=== PATIENT | male | born 1965 | race Caucasian/White ===

== ENCOUNTER → 2019-06-13 | Outpatient (CLI) | payer OTHER ==
--- NOTE | 2019-06-13 17:20 | PCVCIMAG ---
APPROVED REPORT Study performed: 06/13/2019 16:13:08 Exam: Stress Echocardiogram Indication: CAD s/p CABG, chest pressure, htn, hlp Patient Location: Echo lab Stress Nurse: Jayashree Obregon RN Status: routine Ht: 6 ft 0 in HR: 82 bpm BP: 140/90 mmHg Rhythm: NSR Procedure The patient underwent an Exercise Stress Test using the Mason Protocol. Blood pressure, heart rate, and EKG were monitored. An Echocardiogram was performed by food equipment service technician in four stages in quad fashion. At peak stress, four selected images were obtained and placed side by side with resting images for comparison. Stress Test Details Stress Test: Exercise stress testing was performed using a Mason protocol. HR Resting HR: 82 bpmMax Heart Rate (APMHR): 168 bpm Max HR Achieved: 179 bpmTarget HR (85% APMHR): 142 bpm % of APMHR: 106 Recovery HR: 102 bpm HR response to stress: Normal HR response to stress BP Resting BP: 140/90 mmHg Max BP: 180/88 mmHg Recovery BP: 138/84 mmHg BP response to stress: Normal blood pressure response to stress. ECG Resting ECG: Sinus Rhythm Stress ECG: Sinus Rhythm ST Change: Normal Arrhythmia: occasional PVCs Recovery ECG: Sinus Rhythm Recovery ST Change: Normal Recovery Arrhythmia: None Clinical Reason for Termination: Maximal effort Stress Symptoms: Dyspnea, hip pain Exercise duration: 10 min 7 sec Highest Stage Achieved: Stage 4: 4.2 mph at 16% grade. Exercise capacity: 13.4 METs Overall Exercise Capacity for Age: Normal Scale: Active Angina Score: None Pre-Stress Echo The resting Echocardiogram showed normal left ventricular contractility with an estimated Ejection Fraction of about >55%. Normal wall motion in all segments on baseline images. Post-Stress Echo The stress Echocardiogram showed normal left ventricular contractility with an estimated Ejection Fraction of about 65%. Normal augmentation of wall motion in all segments on post stress images. Clinical No clinical or ECG evidence for ischemia. Conclusion Clinical Response: Non-ischemic Exercise Capacity: Average Stress ECG Response: Non-ischemic Stress Echo Images: Non-ischemic The left ventricle is normal in size and wall thickness in both the rest and stress images. Normal color doppler. No regurgitation or stenosis present on pulmonic, mitral, tricuspid or aortic valves. Other Information Study Quality: Adequate <Conclusion> The left ventricle is normal in size and wall thickness in both the rest and stress images. Normal color doppler. No regurgitation or stenosis present on pulmonic, mitral, tricuspid or aortic valves.
== END ==
LOC: PCVCIMAG 16:25
PROVIDERS: ATTEND Internal Medicine Cardiovascular Disease
DX: I25.10 Atherosclerotic heart disease of native coronary artery without angina pectoris (principal); R07.9 Chest pain, unspecified; I10 Essential (primary) hypertension
CPT/HCPCS: 93325; 93351